=== PATIENT | female | born 1970 | race Caucasian/White ===

== ENCOUNTER 2017-05-25 09:50 | Emergency (ER) | payer MEDICAID ==
[~2017-05-25] VITALS: Ht 154.9 cm; Wt 90.7 kg
[2017-05-25 09:50] VITALS: BP_SYST 129
[~2017-05-25 09:50] MED LIST: ALBU17AE26 INH; QVAR INH; THYROID MED PO
[2017-05-25] MEDS ORDERED: ALBUTEROL SULFATE 0.083% 2.5 MG/3 ML VIAL.NEB IH ONE (11:45)
[2017-05-25] MEDS ORDERED: IPRATROPIUM BROM 0.5 MG/2.5 ML VIAL.NEB (ATROVENT) IH ONE (11:45)
[2017-05-25] MEDS ORDERED: methylPREDNISolone SOD SUCC/PF 62.5 MG/ML VIAL IM ONE (11:45)
[2017-05-25 12:10] VITALS: BP_SYST 129
== END 2017-05-25 12:10 | disposition home or self-care (01) ==
LOC: SED 09:50
DX: J45.909 Unspecified asthma, uncomplicated (principal); Z76.0 Encounter for issue of repeat prescription; Z88.0 Allergy status to penicillin
CPT/HCPCS: 94640; 96372; 99283; J2930

== ENCOUNTER 2017-09-28 21:41 | Emergency (ER) | payer SELFPAY ==
[~2017-09-28] VITALS: Ht 165.1 cm; Wt 97.5 kg
[2017-09-28 21:50] VITALS: BP_SYST 125
[2017-09-29] MEDS ORDERED: ACETAMINOPHEN/CODEINE 300 MG-30 MG TABLET PO ONE (00:30)
[2017-09-29] MEDS ORDERED: ERYTHROMYCIN BASE 500 MG TABLET PO ONE (00:30)
[2017-09-29] MEDS ORDERED: ERYTHROMYCIN BASE 500 MG TABLET ONE (00:41)
[2017-09-29 00:57] VITALS: BP_SYST 122
== END 2017-09-29 00:57 | disposition home or self-care (01) ==
LOC: SED 21:41
DX: H60.12 Cellulitis of left external ear (principal); J45.909 Unspecified asthma, uncomplicated; E07.9 Disorder of thyroid, unspecified; Z88.0 Allergy status to penicillin
CPT/HCPCS: 99283

== ENCOUNTER 2021-07-20 12:31 | Emergency (ER) | payer MEDICAID ==
[~2021-07-20] VITALS: Ht 165.1 cm; Wt 86.2 kg
[2021-07-20 12:39] VITALS: BP_SYST 124
[2021-07-20] MEDS ORDERED: IBUP-1969 PO (14:45)
[2021-07-20] MEDS ORDERED: HYDR-3917 PO (14:45)
[2021-07-20 16:07] VITALS: BP_SYST 124
== END 2021-07-20 16:07 | disposition home or self-care (01) ==
LOC: SED 12:31
DX: S93.409A Sprain of unspecified ligament of unspecified ankle, initial encounter (principal); J45.909 Unspecified asthma, uncomplicated; E07.9 Disorder of thyroid, unspecified; Z88.0 Allergy status to penicillin; W19.XXXA Unspecified fall, initial encounter; Y93.89 Activity, other specified; Y92.89 Other specified places as the place of occurrence of the external cause; Y99.8 Other external cause status
CPT/HCPCS: 99283

== ENCOUNTER 2021-11-10 07:59 | Emergency (ER) | payer SELFPAY ==
[~2021-11-10] VITALS: Ht 165.1 cm; Wt 86.2 kg
[~2021-11-10 07:59] MED LIST changes: +HYDR-3917 PO; +IBUP-1969 PO
[2021-11-10 08:07] VITALS: BP_SYST 144
--- NOTE | 2021-11-10 08:10 | NUR ---
BIBS WITH C/C OF LEFT HAND PAIN, NUMBNESS AND NEUROPATHY FROM LEFT THUMB RADIATING TO LEFT WRIST. TAKES IBUPROFEN AT HOME, LAST DOSE LAST NIGHT 400MG AT APPROXIMATELY 2100. REPORTS INEFFECTIVE PAIN RELIEF. VSS, AFEBRILE, NAD NOTED. PLACED IN BED 3, WAITING FOR MD TO ASSESS.
--- NOTE | 2021-11-10 08:13 | NUR ---
DR. WEINSTEIN NOW AT BS TO ASSESS PT.
[2021-11-10] MEDS ORDERED: IBUP-2018 PO (08:17)
--- NOTE | 2021-11-10 08:41 | NUR ---
PT CLEARED FOR DC. CONDITION STABLE. NAD NOTED, ICE PACK GIVEN, PT TO F/U WITH PMD AND CONT WITH OTC MEDS NEEDED. PT VERBALIZED UNDERSTANDING OF DISCHARGE INSTRUCTIONS. AMBULATED OUT OF ED INDEPENDENTLY.
[2021-11-10 08:54] VITALS: BP_SYST 127
== END 2021-11-10 08:41 | disposition home or self-care (01) ==
LOC: SED 07:59
DX: M77.8 Other enthesopathies, not elsewhere classified (principal); M25.531 Pain in right wrist; J45.909 Unspecified asthma, uncomplicated; Z88.0 Allergy status to penicillin; Z79.899 Other long term (current) drug therapy
CPT/HCPCS: 99281

== ENCOUNTER 2024-01-06 21:37 | Emergency (ER) | payer BC ==
[~2024-01-06] VITALS: Ht 162.6 cm; Wt 102.1 kg
[~2024-01-06 21:37] MED LIST changes: +IBUP-2018 PO
[2024-01-06 21:56] VITALS: BP_SYST 144; PULSE 77; RESP 20; TEMP 98.3; O2SAT 100
[2024-01-06] MEDS ORDERED: IBUP-1969 PO (23:11)
[2024-01-06] MEDS ORDERED: IBUPROFEN 600 MG TABLET PO ONE (23:15)
[2024-01-07 00:12] VITALS: BP_SYST 144; PULSE 77; RESP 20; TEMP 98.3; O2SAT 100
== END 2024-01-06 23:45 | disposition home or self-care (01) ==
LOC: SED 21:37
DX: S93.491A Sprain of other ligament of right ankle, initial encounter (principal); J45.909 Unspecified asthma, uncomplicated; E03.9 Hypothyroidism, unspecified; Z88.0 Allergy status to penicillin; Z79.899 Other long term (current) drug therapy; Z79.2 Long term (current) use of antibiotics; W01.0XXA Fall on same level from slipping, tripping and stumbling without subsequent striking against object, initial encounter; Y93.89 Activity, other specified; Y92.89 Other specified places as the place of occurrence of the external cause; Y99.8 Other external cause status
CPT/HCPCS: 99283